=== PATIENT | male | born 1935 | race Asian ===

== ENCOUNTER → 2024-10-17 | Emergency (ER) | payer MEDICARE, OTHER ==
[2009-12-21 18:35] VITALS: RESP 18
[~2024-10-17] MED LIST: ALBU2TAB46 PO; ASPI-556 PO; LACT10SO PO; METO-408 PO; MIRT7.5T11 PO; MULT1CAP32 PO; [UNRECOGNIZED DRUG - CODE] TP
[2024-10-17 11:37] VITALS: BP 138/87; PULSE 97
== END | disposition left against medical advice (07) ==
LOC: EMS 11:36
DX: Z53.21 Procedure and treatment not carried out due to patient leaving prior to being seen by health care provider (principal)